=== PATIENT | female | born 1965 | race Caucasian/White ===

== ENCOUNTER 2016-12-28 07:30 | Day surgery (SDC) | payer OTHER ==
[~2016-12-28] VITALS: Ht 156.2 cm; Wt 71.4 kg
[2016-12-28 07:56] VITALS: BP 123/84; PULSE 75; TEMP 98.3
[2016-12-28 11:10] VITALS: BP 146/88; PULSE 66; TEMP 97.8
[2016-12-28 11:25] VITALS: BP 155/85; PULSE 64
== END 2016-12-28 11:55 | disposition home or self-care (01) ==
LOC: SDCO 07:30
DX: M77.51 Other enthesopathy of right foot and ankle (principal); E66.9 Obesity, unspecified; I25.10 Atherosclerotic heart disease of native coronary artery without angina pectoris; M19.90 Unspecified osteoarthritis, unspecified site; Z68.29 Body mass index [BMI] 29.0-29.9, adult; Z90.710 Acquired absence of both cervix and uterus
CPT/HCPCS: J0690; J1885; J2250; J2704; J3010; J7120

== ENCOUNTER → 2018-01-09 | Outpatient (CLI) | payer BC | LOC: COL.RAD 14:17 | DX: M17.12 Unilateral primary osteoarthritis, left knee (principal); M23.301 Other meniscus derangements, unspecified lateral meniscus, left knee ==

== ENCOUNTER → 2018-04-02 | Outpatient (CLI) | payer BC | LOC: COL.LAB 15:09 | DX: Z01.812 Encounter for preprocedural laboratory examination (principal) ==

== ENCOUNTER 2018-12-26 16:31 | Emergency (ER) | payer BC ==
[~2018-12-26] VITALS: Ht 154.9 cm; Wt 78.2 kg
[2018-12-26 16:38] VITALS: BP 150/76; TEMP 99
[2018-12-26 18:23] VITALS: PULSE 78
== END 2018-12-26 18:25 | disposition home or self-care (01) ==
LOC: COL.ER 16:31
DX: S82.842A Displaced bimalleolar fracture of left lower leg, initial encounter for closed fracture (principal); X50.1XXA Overexertion from prolonged static or awkward postures, initial encounter; Y92.009 Unspecified place in unspecified non-institutional (private) residence as the place of occurrence of the external cause
CPT/HCPCS: J2405; J3010; J7030; Q4045

== ENCOUNTER → 2021-07-02 | Outpatient (CLI) | payer BC | LOC: COL.RAD 08:20 | DX: M19.041 Primary osteoarthritis, right hand (principal) | CPT/HCPCS: J3301; Q9967 ==